=== PATIENT | female | born 1980 | race Caucasian/White ===

== ENCOUNTER → 2021-11-09 | Outpatient (CLI) | payer BC ==
[~2021-11-09] MED LIST: IBP600T1 PO; OXYC-12 PO; PREN1TAB39 PO
--- NOTE | 2021-11-09 17:12 | Diagnostic Imaging Report ---
PROCEDURE: CT abdomen and pelvis without contrast. TECHNIQUE: Multiple contiguous axial images were obtained through the abdomen and pelvis without the use of intravenous contrast. Auto Exposure Controls were utilized during the CT exam to meet ALARA standards for radiation dose reduction. INDICATION: Microhematuria. COMPARISON: No prior studies are available for comparison. FINDINGS: The lung bases are clear. Liver and gallbladder are unremarkable. There is no biliary ductal dilatation. The pancreas and spleen are unremarkable. No adrenal mass is detected. No renal calculi are detected. There is no hydronephrosis. No ureteral or bladder calculi are seen. Aorta is nonaneurysmal. Bowel loops are normal in caliber. There is no obstruction. There is moderate stool throughout the colon. The uterus is unremarkable. There is no free fluid or fluid collection. IMPRESSION: Unremarkable noncontrast CT of the abdomen and pelvis. No urinary tract calculi or obstruction is identified. Dictated by: Dictated on workstation # [id number]
== END ==
LOC: RAD 15:12
PROVIDERS: ATTEND Urology
DX: R31.29 Other microscopic hematuria (principal)
CPT/HCPCS: 74176

== ENCOUNTER → 2023-02-01 | Outpatient (CLI) | payer BC ==
--- NOTE | 2023-02-01 09:49 | Diagnostic Imaging Report ---
Indication: Routine screening No prior mammogram is available for comparison. This a baseline study. 2-D and 3-D bilateral screening mammography was performed with CAD. The current study was also evaluated with a Computer Aided Detection (CAD) system. Both breasts are heterogeneously dense, limiting the sensitivity of mammography. No mass or malignant-appearing microcalcifications are seen. Axillae are unremarkable. IMPRESSION: BI-RADS Category 1 No mammographic features suspicious for malignancy are identified. ACR BI-RADS Category 1: Negative. Result letter will be mailed to the patient. Note: At least 10% of breast cancer is not imaged by mammography. Dictated by: Dictated on workstation # [id number]
== END ==
LOC: RAD 07:30
PROVIDERS: ATTEND Nurse Practitioner Family
DX: Z12.31 Encounter for screening mammogram for malignant neoplasm of breast (principal)
CPT/HCPCS: 77063; 77067